=== PATIENT | female | born 1945 | race Asian ===

== ENCOUNTER 2018-04-09 07:43 | Emergency (ER) | payer MEDICARE, OTHER ==
--- NOTE | 2018-04-09 09:10 | RAD ---
INDICATION: Right lower extremity pain pain, erythema and swelling. COMPARISON: There are no prior studies available for comparison. TECHNIQUE: Multiple real-time, color flow and Doppler tracings of the right lower extremity were obtained. FINDINGS: The common femoral, femoral, profunda femoral and popliteal veins all demonstrate normal compressibility, augmentation with compression and phasic response with respiration. The posterior tibial and peroneal veins demonstrate normal compressibility and augmentation with compression. IMPRESSION: NO EVIDENCE FOR DEEP VENOUS THROMBOSIS.
[2018-04-09] MEDS ORDERED: Iodixanol* (CONTRAST) 320 MG/ML 100 ML SDV IV ONE (10:39)
--- NOTE | 2018-04-09 10:44 | ED ---
Lower Extremity - HPI Summary HPI Summary: Patient presents with right lower extremity soreness, redness, warmth and concern for DVT after seeing her PCP yesterday. She's recently traveled from [place] and developed symptoms 18 days later. She does report she had an issue with this leg while in [place]. Was gardening and developed blisters along the anterior aspect of her tibia. [facility] and diagnosed with cellulitis. She was put on 5 days of oral antibiotics and given a topical antibiotic cream. She reports the infection cleared up with this 5 day course and she's not had any issue since until yesterday. She denies calf pain, tenderness, chest pain, shortness of breath, cough, back pain, hemoptysis , fever, tachycardia, palpitations, fatigue. No previous issues with clotting. She is in overall healthy 72-year-old takes no medication. She is quite active and admits to recent hiking events of up to 12 miles at a clip. She is here today as her PCP ordered a D-dimer test yesterday which is recorded at 1050. Her CBC is without infection and she has a normal CRP. Ultrasound of RLE ordered. - History of Current Complaint Chief Complaint: EDExtremityLower Stated Complaint: RT LEG SWELLING Time Seen by Provider: 04/09/18 09:01 Hx Obtained From: Patient Pain Intensity: 0 - Allergies/Home Medications Allergies/Adverse Reactions: Allergies Allergy/AdvReac Type Severity Reaction Status Date / Time No Known Allergies Allergy Verified 04/09/18 07:54 Home Medications: Home Medications Biotin 800 mcg PO DAILY 04/09/18 [History Confirmed 04/09/18] PMH/Surg Hx/FS Hx/Imm Hx Previously Healthy: Yes Endocrine/Hematology History: Denies: Hx Anticoagulant Therapy, Hx Blood Disorders, Hx Coagulopothy Cardiovascular History: Denies: Hx Deep Vein Thrombosis, Hx Embolism Respiratory History: Denies: Hx Pulmonary Embolism Musculoskeletal History: Denies: Hx Osteoporosis - Cancer History Hx Chemotherapy: No Hx Radiation Therapy: No Infectious Disease History: No Infectious Disease History: Denies: Hx of Known/Suspected MRSA, Traveled Outside the [place] in Last 30 Days - Social History Lives: With Family - Alcohol Use: None Hx Substance Use: No Substance Use Type: Reports: None Hx Tobacco Use: No Smoking Status (MU): Never Smoked Tobacco Review of Systems Constitutional: Negative Negative: Fever, Chills, Fatigue Cardiovascular: Negative Negative: Palpitations, Chest Pain Respiratory: Negative Negative: Shortness Of Breath, Cough Gastrointestinal: Negative Negative: Nausea Positive: no symptoms reported Positive: Edema - mild over Rt distal tibia. Negative: Arthralgia, Myalgia, Decreased ROM Positive: Rash - Rt LE Neurological: Negative Psychological: Normal All Other Systems Reviewed And Are Negative: Yes Physical Exam Triage Information Reviewed: Yes Vital Signs On Initial Exam: Initial Vitals Temp Pulse Resp BP Pulse Ox 98.4 F 77 14 149/97 99 04/09/18 07:48 04/09/18 07:48 04/09/18 07:48 04/09/18 07:48 04/09/18 07:48 Vital Signs Reviewed: Yes Appearance: Positive: Well-Appearing, No Pain Distress, Well-Nourished Skin: Positive: Warm, Skin Color Reflects Adequate Perfusion, Dry - mild erythema w/ healed falking skin over distal anterior tibial region of RLE - pt reports "soreness" here is better today - no streaking, no drainage Head/Face: Positive: Normal Head/Face Inspection Eyes: Positive: Normal, EOMI, Conjunctiva Clear ENT: Positive: Hearing grossly normal, Pharynx normal Neck: Positive: Supple Respiratory/Lung Sounds: Positive: Clear to Auscultation, Breath Sounds Present Cardiovascular: Positive: Normal, RRR, Pulses are Symmetrical in both Upper and Lower Extremities, S1, S2. Negative: Murmur, Rub, Leg Edema Left, Leg Edema Right - (-) Guido's B/L Musculoskeletal: Positive: Normal, Strength/ROM Intact Neurological: Positive: Normal, Sensory/Motor Intact, Alert, Oriented to Person Place, Time, CN Intact II-III Psychiatric: Positive: Normal Diagnostics - Vital Signs Vital Signs Temp Pulse Resp BP Pulse Ox 04/09/18 07:48 98.4 F 77 14 149/97 99 - Laboratory Lab Statement: Any lab studies that have been ordered have been reviewed, and results considered in the medical decision making process. Lower Extremity Course/Dx - Course Course Of Treatment: U/S neg for DVT in affected LE. Discussed w/ Dr. Boyle as pt had a D-dimer of 1050 - CTA offered to pt given her risk factors of recent travel and abnormal lab finding. She agrees to proceed w/ testing vs. monitoring for sx. CTA neg for PE. Pt d/c'd w/ suspicion of return of cellulitis - she will complete course of doxycycline rx'd by her PCP and f/u as directed. She is aware of danger s/sx of when to return to ED. - Diagnoses Provider Diagnoses: Cellulitis, leg Discharge - Sign-Out/Discharge Documenting (check all that apply): Patient Departure - Discharge Plan Condition: Stable Disposition: HOME Patient Education Materials: Cellulitis (ED) Referrals: Marisol Gonsalez MD [Primary Care Provider] - Additional Instructions: You do not have a clot in your leg or chest today. You may have a return of cellulitis - complete your antibiotics as directed and follow-up with your PCP. NOTE: your CT scan revealed abnormal findings that may require follow-up imaging. Discuss with PCP at appointment. *If in the meantime you develop chest pain, shortness of breath, bloody cough, back pain, racing heart, fever or fatigue, return to the ED - Billing Disposition and Condition Condition: STABLE Disposition: Home
--- NOTE | 2018-04-09 11:38 | RAD ---
INDICATION: Elevated d-dimer recent travel. COMPARISON: There are no prior studies available for comparison. TECHNIQUE: A CT angiogram of the chest was performed with intravenous following intravenous injection of 61 ml of Visipaque 320 nonionic contrast. Contiguous axial sections were obtained from the lung apices through the lung bases. Images were reconstructed in the coronal and sagittal planes. FINDINGS: There is relatively homogeneous opacification of the pulmonary arteries. No intraluminal filling defect or pulmonary embolism is seen. The heart is within normal limits in size. No pericardial effusion is present. The thoracic aorta is normal in caliber and demonstrates homogeneous contrast opacification. No significant enlarged mediastinal or hilar lymph nodes are seen. There is a 5 mm calcified nodule in the right upper lobe most consistent with old granulomatous disease. There is a 4 mm noncalcified nodule in the right middle lobe best seen on axial image #29. There is minimal dependent bilateral lower lobe subsegmental atelectasis. No pleural effusion is seen. On images of the upper abdomen there are couple small hypodense hepatic lesions measuring less than 1 cm in size to small to characterize by CT although likely representing cysts. No significant focal osseous abnormality is seen. IMPRESSION: 1. NO EVIDENCE FOR PULMONARY EMBOLISM. 2. FINDINGS CONSISTENT WITH OLD GRANULOMATOUS DISEASE. 3. SMALL 4 MM NONCALCIFIED NODULE IN THE RIGHT MIDDLE LOBE. IF THE PATIENT HAS RISK FACTORS RECOMMEND A FOLLOW-UP NONCONTRAST CT OF THE CHEST IN ONE YEARS TIME.
[2018-04-09 12:33] VITALS: BP 125/61
== END 2018-04-09 12:31 | disposition home or self-care (01) ==
LOC: ED 07:43
DX: L03.115 Cellulitis of right lower limb (principal); R91.1 Solitary pulmonary nodule
CPT/HCPCS: 71275; 99282; Q9967